=== PATIENT | female | born 1950 | race Two or more races ===

== ENCOUNTER 2019-01-24 16:20 | Inpatient (IN) | payer MEDICARE, MEDICAID ==
[~2019-01-24] VITALS: Ht 165.1 cm; Wt 76.2 kg
[2019-01-24] MEDS ORDERED: IV NS 0.9% 1,000 ML BAG IV ONE (16:30)
--- NOTE | 2019-01-24 17:00 | NUR ---
PAT FROM [facility] "ALTERED MORE THAN USUAL", HX OF HYPONATREMIA. PER EMS, BASELINE IS AOX1. NONVERBAL, HYPERTENSIVE, TACHYCARDIC. RR EVEN AND UNLABORED ON RA. PT HAS GERARDO CATHETER, COLOSTOMY, AND GTUBE. SKIN IS INTACT, WARM TO TOUCH. NO ACUTE DISTRESS NOTED. HOOKED TO MONITOR. READY FOR EVAL.
[2019-01-24 17:01] LABS: BASOPHILS % (AUTO) 0.1 % (0.0-2.0); HEMATOCRIT 37 % (33-45); HEMOGLOBIN 12.2 g/dL (11.5-14.8); LYMPHOCYTES # (AUTO) 0.8 /CMM (0.8-4.8); LYMPHOCYTES % (AUTO) 4.4 % (20.0-44.0); MEAN CORPUSCULAR HGB CONC 33 g/dl (31.0-36.0); MEAN CORPUSCULAR VOLUME 78 fL (82-100); MONOCYTES # (AUTO) 0.8 /CMM (0.1-1.30); MONOCYTES % (AUTO) 4.4 % (2.0-12.0); NEUTROPHILS # (AUTO) 16.1 /CMM (1.8-8.9); NEUTROPHILS % (AUTO) 91.1 % (43.0-81.0); PLATELET COUNT (AUTO) 544 /CMM (150-450); RED BLOOD CELL COUNT(AUTO) 4.76 MIL/uL (4.0-5.2); WHITE BLOOD COUNT (AUTO) 17.7 K/uL (4.3-11.0)
--- NOTE | 2019-01-24 17:07 | NUR ---
URINE COLLECTED AND SENT TO STAT LAB
[2019-01-24 17:22] LABS: ALANINE AMINOTRANSFERASE 16 U/L (12-78); ALBUMIN 2.2 g/dL (3.4-5.0); ALKALINE PHOSPHATASE 210 U/L (46-116); ASPARTATE AMINOTRANSFERASE 21 U/L (15-37); BILIRUBIN,DIRECT 0.1 mg/dL (0.0-0.2); BILIRUBIN,TOTAL 0.5 mg/dL (0.2-1.0); CALCIUM, SERUM 8.6 mg/dL (8.5-10.1); CARBON DIOXIDE 17 mmol/L (21-32); CHLORIDE 81 mmol/L (98-107); CREATININE 0.8 mg/dL (0.6-1.3); GLUCOSE 89 mg/dL (74-106); POTASSIUM 3.5 mmol/L (3.5-5.1); TOTAL PROTEIN, SERUM 6.9 g/dL (6.4-8.2); UREA NITROGEN, BLOOD 6 mg/dL (7-18)
[2019-01-24 17:26] LABS: SODIUM SERUM 88 mmol/L (136-145)
[2019-01-24 17:32] LABS: APPEARANCE,URINE TURBID (CLEAR); BLOOD, URINE 3+ Ery/uL (NEGATIVE); COLOR,URINE YELLOW (YELLOW); PROTEIN,URINE 3+ mg/dl (NEGATIVE); UGLUCOSE NEGATIVE (NEGATIVE)
--- NOTE | 2019-01-24 17:32 | NUR ---
SON AT BEDSIDE
[2019-01-24 17:33] LABS: BILIRUBIN,URINE SMALL (NEGATIVE); KETONES,URINE 3+ (NEGATIVE); LEUKOCYTE ESTERASE ,URINE 2+ (NEGATIVE); NITRITE, URINE NEGATIVE (NEGATIVE); UROBILINOGEN,URINE 0.2 EU/dL (0.2)
[2019-01-24 17:35] LABS: WBC,URINE TOO NUMEROUS TO COUN /HPF (0-3)
[2019-01-24 17:36] LABS: BACTERIA,URINE Moderate /HPF (None Seen); SQUAMOUS EPITHELIAL CELL,UR Few /HPF (None Seen)
--- NOTE | 2019-01-24 17:55 | NUR ---
ADMIT 120 TELE SEPSIS ACCEPTING ADELFO FLORES
[2019-01-24] MEDS ORDERED: VANCOMYCIN 1 GM in IV D5W 250 ML IV ONE (18:00)
[2019-01-24] MEDS ORDERED: PIPERACILLIN /TAZOBACTAM 3.375 G in IV D5W 50 ML IV ONE (18:00)
--- NOTE | 2019-01-24 18:07 | NUR ---
REPORT GIVEN TO CAMERON BARTHOLOMEW FOR 120 T
[2019-01-24] MEDS ORDERED: PIPERACILLIN /TAZOBACTAM 3.375 G VIAL IV ONE (18:09)
[2019-01-24] MEDS ORDERED: VANCOMYCIN 1 GM VIAL ONE (18:09)
--- NOTE | 2019-01-24 18:09 | NUR ---
ADMIT TO 120 TELE DX SEPSIS ADELFO FLORES
--- NOTE | 2019-01-24 19:32 | NUR ---
PT SATTING AT 90%, PLACED ON 3L O2 VIA NC
--- NOTE | 2019-01-24 19:54 | NUR ---
[facility]
[2019-01-24 20:00] VITALS: BP 151/77
--- NOTE | 2019-01-24 20:00 | NUR ---
FIRE EXTINGUISHER TECHNICIAN NOTES, RECEIVED 68 YEAR OLD FEMALE ADMITTED FROM ER TRANSFERRED VIA [facility], UNDER MEDICAL SERVICES OF ADELFO HAWTHORNE NP ADMITTING DX SEPSIS, UTI, HYPONATREMIA, H/O PERITONEAL ACCESS DIVERTICULITIS, CHRONIC PAIN, COPD, GERD, HLD, EMPHYSEMA, PATIENT OPEN EYES SPONTANEOUSLY, BUT DOESN'T FOLLOW ANY COMMANDS, BREATHING EVEN AN UNLABORED, NO SOB/ACUTE DISTRESS NOTED AT THIS TIME, WITH VS 151/77, 113, 98.3, 18, 95% AT 3LPM VIA AK, AFEBRILE AT THIS TIME, WITH ABDOMINAL AND SACRAL WOUND NOTED, BED BATH GIVEN UPON ADMISSION ND CHANGED DRESSING FOR WOUND, WILL F/U WITH ADELFO FOR FURTHER ORDERS, BED S/R O F BED ORDERED, CALL LIGHT W/I REACH, FAMILY AT BEDSIDE, WILL CONTINUE TO MONITOR CLOSELY.
[2019-01-24] MEDS ORDERED: ZOLPIDEM TARTRATE 5 MG TABLET PO PRN (21:00)
[2019-01-24] MEDS ORDERED: ONDANSETRON HCL/PF 4 MG/2 ML VIAL IVP PRN (21:00)
[2019-01-24] MEDS ORDERED: ACETAMINOPHEN 325 MG TABLET PO PRN (21:00)
[2019-01-24] MEDS ORDERED: MAGNESIUM HYDROXIDE 30 ML UDC PO PRN (21:00)
[2019-01-24 21:32] LABS: CREATININE 0.9 mg/dL (0.6-1.3); POTASSIUM 4.1 mmol/L (3.5-5.1)
[2019-01-24] MEDS ORDERED: IV Sodium Chloride 3% 500 ML 500 ML IV ONE (22:30)
[2019-01-24] MEDS ORDERED: DEXTROSE 50%-WATER 50 ML DISP.SYRIN IV PRN (22:30)
[2019-01-25] VITALS (27 sets, daily range): BP systolic 93–150; BP diastolic 40–86
[2019-01-25] MEDS: BLOOD SUGAR DIAGNOSTIC 1 EACH STRIP IN SCH ×5 (00:20→23:53)
[2019-01-25] MEDS ORDERED: IV D5W 1,000 ML IV ONE ×2 (01:00→19:00)
[2019-01-25] MEDS ORDERED: DESMOPRESSIN 4 MCG/ML AMPUL SQ ONE (06:00)
--- NOTE | 2019-01-25 06:06 | NUR ---
RN NOTES, PATIENT IN BED AWAKE AT THIS TIME A/O TO SELF, VERBALLY RESPONSIVE, BREATHING EVEN AND UNLABORED, NO SOB/ACUTE DISTRESS NOTED AT THIS TIME, AT 3LPM VIA NC, AFEBRILE AT THIS TIME, NO SIGNIFICANT CHANGE IN CONDITION DURING THE NIGHT, MIDLINE IN ALIA PATENT AND INTACT, D5W AT 50ML/HR INFUSING WELL AND PATIENT TOLERATED WELL, FREQUENT NEUROLOGICAL ASSESSMENTS ORDERED, COLOSTOMY IN PLACED, WITH SMALL AMOUNT OF BROWN SOFT STOOL, F/F IN PLACED DRAINING YELLOW URINE BY GRAVITY, S/R OF BED ORDERED, SAFETY PROVIDED AT ALL TIMES, CALL LIGHT W/I REACH, WILL CONTINUE TO MONITOR CLOSELY.
[2019-01-25 06:27] LABS: BASOPHILS % (AUTO) 0.2 % (0.0-2.0); EOSINOPHILS % (AUTO) 0.1 % (0.0-6.0); HEMATOCRIT 30 % (33-45); HEMOGLOBIN 10.2 g/dL (11.5-14.8); MEAN CORPUSCULAR HGB CONC 34 g/dl (31.0-36.0); MEAN CORPUSCULAR VOLUME 79 fL (82-100); MONOCYTES # (AUTO) 0.9 /CMM (0.1-1.30); MONOCYTES % (AUTO) 11.3 % (2.0-12.0); NEUTROPHILS # (AUTO) 6.2 /CMM (1.8-8.9); NEUTROPHILS % (AUTO) 76.4 % (43.0-81.0); PLATELET COUNT (AUTO) 422 /CMM (150-450); RED BLOOD CELL COUNT(AUTO) 3.86 MIL/uL (4.0-5.2); WHITE BLOOD COUNT (AUTO) 8.1 K/uL (4.3-11.0)
--- NOTE | 2019-01-25 06:30 | NUR ---
RN NOTES, PATIENT MORE ALERT, AWAKE A/O TO SELF, TIME, PLACE, SITUATION, STATED THAT SHE IS IN HOSPITAL, ABLE TO STATE NAME, DATE OF , WILL CONTINUE TO MONITOR AND ENDORSE FOR CONTINUITY OF CARE TO ONCOMING NURSE.
[2019-01-25] MEDS ORDERED: DESMOPRESSIN 4 MCG/ML AMPUL ONE (06:31)
[2019-01-25 06:47] LABS: CALCIUM, SERUM 7.9 mg/dL (8.5-10.1); CREATININE 0.7 mg/dL (0.6-1.3); MAGNESIUM 1.4 mg/dL (1.8-2.4); PHOSPHORUS 2.4 mg/dL (2.5-4.9); POTASSIUM 3.4 mmol/L (3.5-5.1)
[2019-01-25 07:34] LABS: THYROID STIMULATING HORMONE 1.238 uIU/mL (0.358-3.74)
[2019-01-25] MEDS ORDERED: PANT40TA2 PO (07:56)
[2019-01-25] MEDS ORDERED: BUDE0.5A4 IH (07:59)
[2019-01-25] MEDS ORDERED: ENOX40DI SQ (08:00)
[2019-01-25] MEDS ORDERED: FURO40TA5 PO (08:02)
[2019-01-25] MEDS ORDERED: MUPI22OI7 MC (08:04)
[2019-01-25] MEDS ORDERED: CLOP75TA15 PO (08:06)
[2019-01-25] MEDS ORDERED: MULT1CAP34 PO (08:08)
[2019-01-25] MEDS ORDERED: ASCO500T8 PO (08:13)
[2019-01-25] MEDS ORDERED: ZINC220T PO (08:13)
[2019-01-25] MEDS ORDERED: CRAN425C6 PO (08:17)
[2019-01-25] MEDS ORDERED: FERR325T23 PO (08:17)
[2019-01-25] MEDS ORDERED: FAMO20TA8 PO (08:22)
[2019-01-25] MEDS ORDERED: IPRA0.2S49 NEB (08:50)
[2019-01-25] MEDS ORDERED: METO-356 PO (08:55)
[2019-01-25] MEDS ORDERED: LEVA0.6320 NEB (08:55)
[2019-01-25] MEDS ORDERED: LOSA1TAB36 PO (08:55)
[2019-01-25] MEDS ORDERED: MONT10TA22 PO (08:55)
[2019-01-25] MEDS ORDERED: ROSU10TA2 PO (09:00)
[2019-01-25] MEDS ORDERED: SODI100037 PO (09:00)
[2019-01-25] MEDS ORDERED: SUCR1TAB PO (09:00)
--- NOTE | 2019-01-25 09:00 | NUR ---
RECEIVED PATIENT FROM CAMERON LIND TO TRANSFER TO ICU PER SANDRA EMANUEL ORDER FOR CLOSER MONITORING. VSS. A/OX2 MORE ALERT THAN ON ADMISSION PER REPORTING. TOLERATING LOW FLOW 02 NC WITHOUT SOB, DIFFICULTY BREATHING. PATIENT NOTED WITH COLOSTOMY L QUADRANT AND MARLEEN DRAIN RIGHT QUADRANT C/D/I/P WITH PRURULENT DRAINAGE NOTED. ABD INCISION DEHISCED AND DRAINING PURULENT DRAINAGE WELL. DRESSING C/D/I. SKIN, SAFETY, ASPIRATION PRECAUTIONS IN PLACE AND WILL MONITOR
[2019-01-25] MEDS: Magnesium 1GM/D5W 100ML PREMIX 100 ML IV SCH ×2 (09:17→10:29)
--- NOTE | 2019-01-25 09:33 | NUR ---
PATIENT A/OX2-3 SLIGHTLY FORGETFUL OF ADMISSION TIME AND WHY SHE IS HERE. UNDERSTANDING OF SITUATIONS AND COMPREHENDS. PER PATIENT SHE WISHES TO BE DNR/DNI. NO CHEST COMPRESSIONS AND NO INTUBATION IN THE EVENT HER HEART STOPS OR SHE STOPS BREATHING. SPOKE WITH PATIENT NOTED DANIS MAYS AND SHE STATES PATIENT STILL MAKES HER OWN DECISIONS AND RESPECTFUL OF PATIENT DNR/DNI WISHES.
[2019-01-25] MEDS: POTASSIUM CL. PREMIX PERIPHER. 50 ML IV SCH ×2 (11:38→12:27)
--- NOTE | 2019-01-25 12:09 | NUR ---
PER EVI FLORES PLEASE ORDER DAKINS 09/30 SOAKED GAUZE PACKED IN WOUND AND COVER WITH DRY DRESSING
[2019-01-25 12:46] LABS: CALCIUM, SERUM 7.7 mg/dL (8.5-10.1); CREATININE 0.7 mg/dL (0.6-1.3); POTASSIUM 3.4 mmol/L (3.5-5.1)
[2019-01-25] MEDS: DESMOPRESSIN 4 MCG/ML AMPUL SQ SCH ×3 (12:48→23:56)
[2019-01-25] MEDS: POTASSIUM PHOSPHATE MM 5 MMOL in IV D5W 100 ML IV SCH ×2 (13:38→15:49)
--- NOTE | 2019-01-25 13:42 | NUR ---
SANDRA HAWTHORNE AT BEDSIDE. UPDATED ON PATIENT CONDITION/LABS/VS. PER ENVIRONMENTAL LEAD DR HART WILL COVER ELECTROLYTE IMBALANCES. OKAY WITH SODIUM OF 115. NO NEW ORDERS. PENDING UPDATED BMP AT 1800
[2019-01-25] MEDS: ENSURE ENLIVE CHOC 237 ML CAN PO SCH ×2 (14:30→18:10)
[2019-01-25] MEDS: Z GUARD REMEDY 2 OZ OINT TP PRN (18:03)
--- NOTE | 2019-01-25 18:56 | NUR ---
SANDRA CAMPOS AT BEDSIDE. UPDATED ON PATIENT CONDITION, LABS, VS. VISUALIZED WOUND. PER COMMERCIAL SERVICE TECHNICIAN OK TO REPLACE GERARDO CATH.
--- NOTE | 2019-01-25 18:58 | NUR ---
ALL DUE MEDS GIVEN AND ALL NEEDS MET. PATIENT VSS. ROOM AIR STABLE. PER SENIOR DATABASE ADMINISTRATOR ADELFO NOTIFY HER OF NEWEST UPCOMING BMP SODIUM LEVEL AND UNTIL THEN CONTINUE THE D5W AT 50ML/HOUR. SKIN, SAFETY, ASPIRATION PRECAUTIONS MONITORED THROUGHOUT THE DAY.
--- NOTE | 2019-01-25 19:20 | NUR ---
CARE ENDORSED TO CAMERON MARIE FOR FLORENTINO. PATIENT STABLE. NO S/S DISTRESS.
--- NOTE | 2019-01-25 19:20 | NUR ---
Lab resulted BMP with sodium 115.SANDRA Peter notified.Awaiting for orders.
--- NOTE | 2019-01-25 19:30 | NUR ---
Received patient awake oriented x 1 otherwise disoriented and forgetful.Oriented to pace and time. Respiration even and unlabored.On RA SPO2 87% non sustaining and goes up 98%-100%.SR.VS stable. Hemodynamically stable.Abdomen soft with colostomy and MARLEEN.Abdominal dressing C/D/I.FC to gravity. IVF D5W infusing at 50 ml/hr via ALIA MID LINE site intact.Denies pain.Care explained verbalized understanding.Safety precaution observed.Bed in locked and low position.Side rails up and call light within easy reach.Bed alarm on.turned and repositioned.
[2019-01-25 19:36] LABS: CALCIUM, SERUM 7.7 mg/dL (8.5-10.1); CREATININE 0.7 mg/dL (0.6-1.3); POTASSIUM 3.7 mmol/L (3.5-5.1)
--- NOTE | 2019-01-25 20:00 | NUR ---
Mcfarlane catheter removed with tip intact.New Mcfarlane Catheter Fr# 16 inserted under aseptic technique by CAMERON Morocho with cloudy yellow urine small amount.Patient tolerated procedure well.
[2019-01-25] MEDS ORDERED: IV D5/0.45 NACL 1,000 ML IV SCH (21:00)
[2019-01-25] MEDS: PIPERACILLIN /TAZOBACTAM 3.375 G in IV D5W 50 ML IV SCH (21:00)
[2019-01-25] MEDS ORDERED: IV D5W 1,000 ML IV PRN (22:30)
[2019-01-26] VITALS (20 sets, daily range): BP systolic 114–163; BP diastolic 48–92
--- NOTE | 2019-01-26 | NUR ---
Patient resting.VS stable.Turned and repositioned.Denies pain.
[2019-01-26 01:03] LABS: CALCIUM, SERUM 7.7 mg/dL (8.5-10.1); CREATININE 0.7 mg/dL (0.6-1.3); POTASSIUM 3.5 mmol/L (3.5-5.1)
[2019-01-26] MEDS: PIPERACILLIN /TAZOBACTAM 3.375 G in IV D5W 50 ML IV SCH ×3 (02:30→21:17)
[2019-01-26 05:11] LABS: BASOPHILS % (AUTO) 0.3 % (0.0-2.0); EOSINOPHILS % (AUTO) 0.4 % (0.0-6.0); HEMATOCRIT 27 % (33-45); HEMOGLOBIN 9.1 g/dL (11.5-14.8); LYMPHOCYTES # (AUTO) 0.9 /CMM (0.8-4.8); LYMPHOCYTES % (AUTO) 9.3 % (20.0-44.0); MEAN CORPUSCULAR HGB CONC 34 g/dl (31.0-36.0); MEAN CORPUSCULAR VOLUME 77 fL (82-100); MONOCYTES # (AUTO) 0.9 /CMM (0.1-1.30); MONOCYTES % (AUTO) 9.8 % (2.0-12.0); NEUTROPHILS # (AUTO) 7.4 /CMM (1.8-8.9); NEUTROPHILS % (AUTO) 80.2 % (43.0-81.0); PLATELET COUNT (AUTO) 335 /CMM (150-450); RED BLOOD CELL COUNT(AUTO) 3.45 MIL/uL (4.0-5.2); WHITE BLOOD COUNT (AUTO) 9.2 K/uL (4.3-11.0)
[2019-01-26 05:24] LABS: CALCIUM, SERUM 7.6 mg/dL (8.5-10.1); CREATININE 0.8 mg/dL (0.6-1.3); MAGNESIUM 1.6 mg/dL (1.8-2.4); PHOSPHORUS 2.2 mg/dL (2.5-4.9); POTASSIUM 3.4 mmol/L (3.5-5.1)
[2019-01-26] MEDS: BLOOD SUGAR DIAGNOSTIC 1 EACH STRIP IN SCH ×4 (05:57→23:00)
[2019-01-26] MEDS: DESMOPRESSIN 4 MCG/ML AMPUL SQ SCH (05:58)
--- NOTE | 2019-01-26 06:40 | NUR ---
WOUND CARE CONSULT WOUND CARE RECEIVED CONSULT FOR ABD AND SACRUM. WOUND CARE WILL DEFER CONSULT AND TREATMENT PLANS TO PLASTIC SURGICAL TEAM WHO ARE CURRENTLY FOLLOWING THIS PATIENT. PATIENT WITH KWAME AT 12, ALL PRESSURE ULCER PREVENTION MEASURES ARE NOTED TO BE IN PLACE. WILL SEE PRN.
--- NOTE | 2019-01-26 06:50 | NUR ---
Patient resting vs remains stable.Am care done.Remains confused on and off talking to imaginary friend. Sodium level remains low 115,116,114.IVF D5W infusing.Safety precaution maintained.Will endorse to day shift FLORENTINO.
--- NOTE | 2019-01-26 08:00 | NUR ---
RN NOTE: PATIENT RECEIVED ALERT AWAKE ORIENTED X 1 WITH EPISODES OF CONFUSION, FORGETFUL. ON ROOM AIR, NO BREATHING DISTRESS NOTED. DENIES PAIN & DISCOMFORT. IV FLUIDS RUNNING ORDERED BY MD. CONTINUE TO MONITOR LAB VALUES. ABDOMINAL SURGICAL SITE DRESSING INTACT. MARLEEN DRAIN INTACT WITH MINIMAL OUTPUT. COLOSTOMY BAG INTACT, NO LEAKAGE NOTED. GERARDO CATH INTACT, DRAINING WITH GRAVITY. SAFETY MEASURES OBSERVED. ENCOURAGE PATIENT TO USE CALL LIGHT FOR ASSISTANCE. CONTINUE TO MONITOR.
[2019-01-26] MEDS: ENSURE ENLIVE CHOC 237 ML CAN PO SCH ×2 (08:27→17:47)
[2019-01-26] MEDS: Z GUARD REMEDY 2 OZ OINT TP PRN (08:28)
[2019-01-26] MEDS: DAKINS QUARTER STRENGTH (0.125%) 480 ML BOTTLE TOP SCH (08:29)
[2019-01-26] MEDS: Magnesium 1GM/D5W 100ML PREMIX 100 ML IV SCH ×2 (10:05→11:10)
[2019-01-26] MEDS: IV NS 0.9% 1,000 ML IV PRN (10:21)
--- NOTE | 2019-01-26 12:00 | NUR ---
RN NOTE: PATIENT REMAINS ALERT AWAKE ORIENTED X 1. NO SIGNIFICANT CHANGES NOTED. CONTINUE WITH PLAN OF CARE. ABDOMINAL DRESSING CHANGES ORDERED. ENCOURAGE PATIENT FOR ORAL INTAKE.
[2019-01-26] MEDS: POTASSIUM PHOSPHATE MM 5 MMOL in IV D5W 100 ML IV SCH ×2 (12:20→14:38)
[2019-01-26 14:52] LABS: CALCIUM, SERUM 7.7 mg/dL (8.5-10.1); CREATININE 0.7 mg/dL (0.6-1.3); POTASSIUM 3.5 mmol/L (3.5-5.1)
[2019-01-26] MEDS ORDERED: IV Sodium Chloride 3% 500 ML 500 ML IV ONE (16:00)
--- NOTE | 2019-01-26 16:45 | NUR ---
RN RECEIVING NOTES RECEIVED REPORT FROM ICU NURSE AT 1635. PT WAS BROUGHT TO UNIT IN BED ON TELE MONITOR. PT DENIES ANY PAIN OR SOB AT PRESENT MOMENT. PT VITALS TAKEN. WILL CONTINUE TO MONITOR PT.
--- NOTE | 2019-01-26 16:53 | NUR ---
RN NOTES: AT 1510: RECEIVED CRITICAL LAB VALUE SODIUM IS 113, DR. HART MADE AWARE, RECEIVED NEW ORDERS TO START NS 3% AT 30ML/HR FOR 8 HRS X 1. ORDERS NOTED & CARRIED OUT. BMP CHECK AT 1800 TODAY. WAITING FROM PHARMACY TO DELIVER NS 3%. AT 1640: PATIENT TRANSFERRED TO TELE FLOOR WITH ACLS PROTOCOL ORDERED BY MD. REPORT GIVEN TO ASSIGN RN.
[2019-01-26 18:24] LABS: CALCIUM, SERUM 7.8 mg/dL (8.5-10.1); CREATININE 0.7 mg/dL (0.6-1.3)
--- NOTE | 2019-01-26 18:32 | NUR ---
LAB CALLED TO REPORT CRITICAL LAB VALUE OF SODIUM LEVEL 114. ALREADY AWARE OF LOW LEVELS. PRIOR LEVEL WAS 113.
--- NOTE | 2019-01-26 18:33 | NUR ---
3% SODIUM STARTED LATE DUE TO UNAVAILABILITY FROM RX.
--- NOTE | 2019-01-26 18:49 | NUR ---
DELIVERY CREW WORKER CLOSING NOTES PT IS LAYING IN BED. PT IS CONFUSED AND IS A&O X1. NEUROLOGICAL CHECKS Q2HRS. PT HAS A ELZBIETA MIDLINE. PT STATES THAT SHE IS NOT HAVING ANY CHEST PAIN OR SOB AT PRESENT MOMENT. BED IS LOCKED AND IN LOWEST POSITION WITH GERARDO DRAINING TO GRAVITY. WILL ENDORSE CONTINUITY OF CARE TO TEMPLATE CUTTER NURSE.
[2019-01-26] MEDS: HYDROCODONE/APAP 5/325MG 1 EACH TABLET PO PRN (21:23)
[2019-01-27] VITALS (7 sets, daily range): BP systolic 130–154; BP diastolic 72–82
[2019-01-27] MEDS: PIPERACILLIN /TAZOBACTAM 3.375 G in IV D5W 50 ML IV SCH ×4 (02:51→21:29)
[2019-01-27] MEDS: HYDROCODONE/APAP 5/325MG 1 EACH TABLET PO PRN ×3 (02:52→16:34)
[2019-01-27] MEDS: IV NS 0.9% 1,000 ML IV PRN ×2 (06:00→16:50)
[2019-01-27] MEDS: BLOOD SUGAR DIAGNOSTIC 1 EACH STRIP IN SCH ×3 (06:00→17:19)
[2019-01-27 07:27] LABS: ALBUMIN 1.9 g/dL (3.4-5.0); BILIRUBIN,TOTAL 0.4 mg/dL (0.2-1.0); CREATININE 0.7 mg/dL (0.6-1.3); MAGNESIUM 1.9 mg/dL (1.8-2.4); POTASSIUM 3.6 mmol/L (3.5-5.1); TOTAL PROTEIN, SERUM 5.7 g/dL (6.4-8.2)
--- NOTE | 2019-01-27 07:28 | NUR ---
Attempt to give patient orange juice, apple juice, spoon full of sugar. Patient refused. Will give amp of d50. Harley Thacker RN
[2019-01-27 07:36] LABS: BASOPHILS % (AUTO) 0.3 % (0.0-2.0); EOSINOPHILS % (AUTO) 1.2 % (0.0-6.0); HEMATOCRIT 29 % (33-45); HEMOGLOBIN 9.8 g/dL (11.5-14.8); LYMPHOCYTES # (AUTO) 0.9 /CMM (0.8-4.8); LYMPHOCYTES % (AUTO) 15.5 % (20.0-44.0); MEAN CORPUSCULAR HGB CONC 34 g/dl (31.0-36.0); MEAN CORPUSCULAR VOLUME 78 fL (82-100); MONOCYTES # (AUTO) 0.6 /CMM (0.1-1.30); MONOCYTES % (AUTO) 10.6 % (2.0-12.0); NEUTROPHILS % (AUTO) 72.4 % (43.0-81.0); PLATELET COUNT (AUTO) 308 /CMM (150-450); RED BLOOD CELL COUNT(AUTO) 3.71 MIL/uL (4.0-5.2); WHITE BLOOD COUNT (AUTO) 5.6 K/uL (4.3-11.0)
[2019-01-27] MEDS: ENSURE ENLIVE CHOC 237 ML CAN PO SCH ×2 (08:05→17:00)
[2019-01-27] MEDS: DAKINS QUARTER STRENGTH (0.125%) 480 ML BOTTLE TOP SCH (09:20)
--- NOTE | 2019-01-27 10:16 | NUR ---
LEONIE Castellon will remove food processing plant manager as she is changing the patient at this time. Harley Thacker RN
[2019-01-27] MEDS ORDERED: IV Sodium Chloride 3% 500 ML 500 ML IV SCH (14:30)
[2019-01-27 14:54] LABS: CALCIUM, SERUM 7.6 mg/dL (8.5-10.1); CREATININE 0.6 mg/dL (0.6-1.3); POTASSIUM 3.4 mmol/L (3.5-5.1)
--- NOTE | 2019-01-27 16:47 | NUR ---
Wound care with VEHICLE WASHER Erasmo. Patient wound covered in dakins per orders packed with kerlix. Abdominal pad and tape placed on top of this. Harley Thacker RN
--- NOTE | 2019-01-27 16:50 | NUR ---
Three percent NS bag for IV fluids at this time in lieu of 0.9% NS. Harley Thacker RN
[2019-01-27] MEDS ORDERED: IV NS 0.9% 250 ML IV ONE (17:45)
[2019-01-27] MEDS ORDERED: IOHEXOL-300 100 ML VIAL IV ONE (17:45)
--- NOTE | 2019-01-27 17:51 | NUR ---
Patient signed consent. She is NPO pending her procedure. CT / Radiology department notified midline IV present and patient is ready for pickup. Harley Thacker RN
--- NOTE | 2019-01-27 19:05 | NUR ---
Patient return from CT of abdomen and pelvis. Offered PO intake. Refused at this time. Midline site reconnection for IV 3% normal saline administration. Harley Thacker RN
--- NOTE | 2019-01-27 19:45 | NUR ---
RN NOTES RECEIVED PATIENT AWAKE IN BED, S/P CT OF THE ABDOMEN AND PELVIS, RESTING COMFORTABLY, NO SIGNS OF ACUTE RESPIRATORY DISTRESS NOTED, SAFETY MEASURES IN PLACED, BED IN LOW LOCKED POSITION, CALL LIGHT WITHIN EASY REACH, ASPIRATION PRECAUTION OBSERVED, REPOSITIONED FOR COMFORT, KEPT CLEAN DRY AND COMFORTABLE. WILL MONITOR ACCORDINGLY.
[2019-01-28] MEDS: BLOOD SUGAR DIAGNOSTIC 1 EACH STRIP IN SCH ×4 (00:07→18:03)
[2019-01-28 00:23] VITALS: BP 153/82
[2019-01-28] MEDS: PIPERACILLIN /TAZOBACTAM 3.375 G in IV D5W 50 ML IV SCH ×4 (02:54→21:19)
[2019-01-28 04:05] VITALS: BP 141/74
[2019-01-28] MEDS: IV NS 0.9% 1,000 ML IV PRN ×2 (05:45→18:04)
--- NOTE | 2019-01-28 06:28 | NUR ---
RN NOTES ALL NEEDS ATTENDED AND MET, ABLE TO REST AND SLEEP AT INTERVALS, KEPT RESTED, NO SIGNS OF ACUTE RESPIRATORY DISTRESS NOTED, KEPT ORTIZ AND DRY, SAFETY MEASURES IN PLACED, ASPIRATION PRECAUTION OBSERVED, MARLEEN DRAINAGE NOTED WITH PURULENT NON FOUL SMELLING, INTACT AND SECURED, ABDOMINAL DRESSING DRY CLEAN AND INTACT, WILL ENDORSE TO AM NURSE FOR CONTINUITY OF CARE.
[2019-01-28 07:22] LABS: ALBUMIN 1.7 g/dL (3.4-5.0); BILIRUBIN,TOTAL 0.3 mg/dL (0.2-1.0); CALCIUM, SERUM 8.1 mg/dL (8.5-10.1); CREATININE 0.6 mg/dL (0.6-1.3); MAGNESIUM 1.8 mg/dL (1.8-2.4); PHOSPHORUS 3.4 mg/dL (2.5-4.9); POTASSIUM 3.4 mmol/L (3.5-5.1); TOTAL PROTEIN, SERUM 5.3 g/dL (6.4-8.2)
[2019-01-28 07:31] LABS: THYROID STIMULATING HORMONE 2.046 uIU/mL (0.358-3.74); URIC ACID 1.7 mg/dL (2.6-7.2)
[2019-01-28 07:48] LABS: BASOPHILS % (AUTO) 0.3 % (0.0-2.0); EOSINOPHILS % (AUTO) 0.6 % (0.0-6.0); HEMATOCRIT 31 % (33-45); HEMOGLOBIN 10.2 g/dL (11.5-14.8); LYMPHOCYTES # (AUTO) 0.6 /CMM (0.8-4.8); LYMPHOCYTES % (AUTO) 11.7 % (20.0-44.0); MEAN CORPUSCULAR HGB CONC 33 g/dl (31.0-36.0); MEAN CORPUSCULAR VOLUME 79 fL (82-100); MONOCYTES # (AUTO) 0.4 /CMM (0.1-1.30); NEUTROPHILS # (AUTO) 4.3 /CMM (1.8-8.9); NEUTROPHILS % (AUTO) 79.4 % (43.0-81.0); PLATELET COUNT (AUTO) 301 /CMM (150-450); RED BLOOD CELL COUNT(AUTO) 3.94 MIL/uL (4.0-5.2); WHITE BLOOD COUNT (AUTO) 5.3 K/uL (4.3-11.0)
[2019-01-28 08:00] VITALS: BP 160/78
[2019-01-28] MEDS: HYDROCODONE/APAP 5/325MG 1 EACH TABLET PO PRN ×2 (09:15→21:19)
[2019-01-28] MEDS: DAKINS QUARTER STRENGTH (0.125%) 480 ML BOTTLE TOP SCH (09:18)
[2019-01-28] MEDS: ENSURE ENLIVE CHOC 237 ML CAN PO SCH ×2 (09:18→17:54)
[2019-01-28] MEDS ORDERED: POTASSIUM CHLORIDE 20 MEQ TAB.PRT.SR PO SCH (10:00)
--- NOTE | 2019-01-28 13:27 | NUR ---
Moist non-productive cough audible without stethoscope. Patient swelling on the right ankle more than left ankle 3+ and 2+, respectively. Will encourage lower extremity positioning for return of fluid to the heart, coughing, and deep breathing. Harley Lozano RN
[2019-01-28 14:47] LABS: CALCIUM, SERUM 8.2 mg/dL (8.5-10.1); CREATININE 0.7 mg/dL (0.6-1.3); POTASSIUM 3.4 mmol/L (3.5-5.1)
[2019-01-28 16:00] VITALS: BP 126/66
--- NOTE | 2019-01-28 18:26 | NUR ---
MARLEEN drain 15ml out. Sent to micro for culture. Wound culture not advised per ID at this time. Harley Lozano RN
--- NOTE | 2019-01-28 19:14 | NUR ---
Handoff to CAMERON Escudero. Harley Thacker RN
--- NOTE | 2019-01-28 19:15 | NUR ---
RN MS OPENING NOTES RECEIVED PATIENT IN BED AWAKE ALERT AND ORIENTED X2, NOTED WITH FORGETFULNESS BUT REDIRECTABLE. ABLE TO MAKE SIMPLE NEEDS KNOWN, RESPIRATIONS EVEN AND UNLABORED WITH EQUAL RISE AND FALL OF CHEST, ON 2 L VIA NC , NO SOB, NO DISTRESS PRESENT, COLOSTOMY BAG CLEAN, DRY AND INTACT, ABD. DRESSING CLEAN, DRY AND INTACT, OFFERED TO CHANGE DRESSING PATIENT STATES "LATER" WILL TRY AGAIN. GERARDO CATHETER INTACT AND DRAINING URINE YELLOW, MARLEEN DRAIN INTACT WITH PROPER SUCTION, WILL MONITOR FOR DRAINAGE, PATIENT REPOSITIONED, HEEL OFFLOADED, ORIENTED TO STAFF AND CALL LIGHT AND KEPT WITHIN REACH, SAFETY PRECAUTIONS IN PLACE,LOW BED AND LOCKED, BED ALARM IN PLACE, RIGHT UPPER ARM PICC LINE INTACT AND PATENT, IVF RUNNING ORDERED, ALL NEEDS ATTENDED AT THIS TIME, PATIENT REMAINS COMFORTABLE WILL CONTINUE TO MONITOR AND ADDRESS NEEDS. Addendum: 01/28/19 at 2200 by AWILDA LIGHT RN CLARIFICATION PICC LINE LEFT UPPER ARM.
[2019-01-28 20:00] VITALS: BP 146/65
--- NOTE | 2019-01-28 21:19 | NUR ---
RN MS NOTES PATIENT COMPLAINT OF PAIN TO ABDOMEN SITE, REQUESTING FOR NORCO 5/10 PAIN VS WNL 146/65,18,94%,86 NORCO PRN GIVEN ORDERED WILL CONTINUE TO MONITOR, OFFERED PATIENT TO HAVE ABD. DRESSING CHANGE 30-45 MINS AFTER NORCO ADMINISTRATION PATIENT REFUSED STATES "NO, LATER".
[2019-01-29] MEDS: INSULIN REGULAR, HUMAN 100 UNIT/ML 3 ML VIAL SQ PRN ×2 (00:27→06:00)
[2019-01-29] MEDS: BLOOD SUGAR DIAGNOSTIC 1 EACH STRIP IN SCH ×4 (00:27→18:11)
[2019-01-29] MEDS: PIPERACILLIN /TAZOBACTAM 3.375 G in IV D5W 50 ML IV SCH ×4 (02:51→20:33)
[2019-01-29] MEDS: IV NS 0.9% 1,000 ML IV PRN ×2 (02:51→20:33)
[2019-01-29 04:00] VITALS: BP 160/78
[2019-01-29] MEDS: HYDROCODONE/APAP 5/325MG 1 EACH TABLET PO PRN (04:28)
--- NOTE | 2019-01-29 04:28 | NUR ---
RN MS NOTES PATIENT COMPLAINT OF PAIN TO ABDOMEN AREA 07/06 STATES "ACHING" NOTED WITH MOANS, OFFERED NORCO PRN PATIENT AGREED, VS WNL 160/78,97,17,99%. NORCO PRN GIVEN ORDERED WILL CONTINUE TO MONITOR FOR EFFECTIVENESS. OFFERED WOUND CARE 30-45 MINS AFTER NORCO ADMINISTRATION PATIENT AGREED.
--- NOTE | 2019-01-29 07:03 | NUR ---
RN MS CLOSING NOTES PATIENT IN BED AWAKE ALERT AND ORIENTED X2, NOTED WITH FORGETFULNESS BUT REDIRECTABLE. ABLE TO MAKE SIMPLE NEEDS KNOWN, RESPIRATIONS EVEN AND UNLABORED WITH EQUAL RISE AND FALL OF CHEST, ON 2 L VIA NC , NO SOB, NO DISTRESS PRESENT, COLOSTOMY BAG CLEAN, DRY AND INTACT, ABD. DRESSING CLEAN, DRY AND INTACT, CHANGE DRESSING PATIENT TOLERATED WELL. GERARDO CATHETER INTACT AND DRAINING URINE YELLOW, MARLEEN DRAIN INTACT WITH PROPER SUCTION, PATIENT REPOSITIONED, HEELS OFFLOADED,CALL LIGHT KEPT WITHIN REACH, SAFETY PRECAUTIONS IN PLACE,LOW BED AND LOCKED, BED ALARM IN PLACE, RIGHT UPPER ARM PICC LINE INTACT AND PATENT, IVF RUNNING ORDERED, ALL NEEDS ATTENDED AT THIS TIME, PATIENT REMAINS COMFORTABLE WILL CONTINUE TO MONITOR AND ADDRESS NEEDS AND ENDORSE TO NEXT SHIFT, WOUND CARE PROVIDED ORDERED.
[2019-01-29 07:10] LABS: BASOPHILS % (AUTO) 0.4 % (0.0-2.0); EOSINOPHILS % (AUTO) 0.7 % (0.0-6.0); HEMATOCRIT 30 % (33-45); LYMPHOCYTES # (AUTO) 0.8 /CMM (0.8-4.8); LYMPHOCYTES % (AUTO) 14.5 % (20.0-44.0); MEAN CORPUSCULAR HGB CONC 33 g/dl (31.0-36.0); MEAN CORPUSCULAR VOLUME 78 fL (82-100); MONOCYTES # (AUTO) 0.5 /CMM (0.1-1.30); NEUTROPHILS # (AUTO) 4.5 /CMM (1.8-8.9); NEUTROPHILS % (AUTO) 76.4 % (43.0-81.0); PLATELET COUNT (AUTO) 289 /CMM (150-450); RED BLOOD CELL COUNT(AUTO) 3.89 MIL/uL (4.0-5.2); WHITE BLOOD COUNT (AUTO) 5.8 K/uL (4.3-11.0)
[2019-01-29 07:28] LABS: ALBUMIN 1.7 g/dL (3.4-5.0); BILIRUBIN,TOTAL 0.3 mg/dL (0.2-1.0); CALCIUM, SERUM 8.2 mg/dL (8.5-10.1); CREATININE 0.6 mg/dL (0.6-1.3); MAGNESIUM 1.7 mg/dL (1.8-2.4); PHOSPHORUS 3.2 mg/dL (2.5-4.9); POTASSIUM 3.4 mmol/L (3.5-5.1); TOTAL PROTEIN, SERUM 5.2 g/dL (6.4-8.2)
[2019-01-29 08:00] VITALS: BP 120/82
[2019-01-29] MEDS: ENSURE ENLIVE CHOC 237 ML CAN PO SCH ×2 (08:41→16:48)
[2019-01-29] MEDS: DAKINS QUARTER STRENGTH (0.125%) 480 ML BOTTLE TOP SCH (08:54)
[2019-01-29] MEDS ORDERED: POTASSIUM CHLORIDE 20 MEQ TAB.PRT.SR PO SCH (10:30)
[2019-01-29] MEDS: Magnesium 1GM/D5W 100ML PREMIX 100 ML IV SCH ×2 (11:22→13:05)
[2019-01-29 12:00] VITALS: BP 120/86
[2019-01-29 16:00] VITALS: BP_SYST 128; BP_SYST 138; BP_DIAS 76; BP_DIAS 80
--- NOTE | 2019-01-29 19:25 | NUR ---
MS RN NOTE PATIENT RECEIVED IN BED A/O X 2. PATIENT ABLE TO MAKE NEEDS KNOWN. NO CURRENT NEEDS VOICED AT THIS TIME. PATIENT HAS NO S.S OF ACUTE DISTRESS. PATIENT BREATHING EVEN UNLABORED. PATIENT DENIES CHEST PAIN AT THIS TIME. HAS MARLEEN DRAIN INTACT WITH SEROUS MCCAIN/YELLOWISH DRAINAGE. MD ORDER GIVEN TO MILK THE DRAIN TUBING. PATIENT REPOSITIONED FOR COMFORT SAFETY PRECAUTIONS IN PLACE. RN WILL CONTINUE TO MONITOR. CALL LIGHT AT BEDSIDE.
[2019-01-29 20:00] VITALS: BP 161/85
[2019-01-29 20:11] VITALS: BP 161/85
[2019-01-30] MEDS: BLOOD SUGAR DIAGNOSTIC 1 EACH STRIP IN SCH ×3 (00:50→13:49)
[2019-01-30] MEDS: PIPERACILLIN /TAZOBACTAM 3.375 G in IV D5W 50 ML IV SCH ×2 (02:59→09:50)
[2019-01-30 04:00] VITALS: BP 147/78
[2019-01-30 04:43] VITALS: BP 147/78
[2019-01-30 06:54] LABS: CALCIUM, SERUM 8.3 mg/dL (8.5-10.1); CREATININE 0.6 mg/dL (0.6-1.3); MAGNESIUM 1.7 mg/dL (1.8-2.4); POTASSIUM 3.4 mmol/L (3.5-5.1)
--- NOTE | 2019-01-30 07:30 | NUR ---
RN NOTES RECEIVED PATIENT IN BED AWAKE, ALERT AND ORIENTED X2, NOTED WITH FORGETFULNESS. ABLE TO MAKE NEEDS KNOWN, RESPIRATIONS EVEN AND UNLABORED. ON 2L VIA NC, NO SOB NOTED. NO COMPLAINTS OF ANY KIND OF PAIN AT THIS TIME. APPEARS TO BE COMFORTABLE I BED. IV ACCCESS ON THE ALIA PICC LINE IN PLACE AND INTACT, WITH ONGOING IVF OF NS AT 100CC/HR. COLOSTOMY BAG IN PLACE AND INTACT. MARLEEN DRAIN IN PLACE DRAINING TO SEROUS PURULENT DRAINAGE SCANTY AT THIS TIME, WILL MONITOR DRAINAGE. GERARDO CATHETER INTACT AND DRAINING VIA GRAVITY YO YELLOW URINE. PATIENT ENCOURAGE TO CALL FOR HELP/ ASSISTANCE. CALL LIGHT PLACED WITHIN REACH, SAFETY PRECAUTIONS OBSERVED AND KEPT IN PLACE, BED IN LOW AND LOCKED POSITIONED, WILL CONTINUE TO MONITOR PATIENT AND ADDRESS NEEDS
[2019-01-30] MEDS ORDERED: SULF1TAB48 PO (09:08)
[2019-01-30] MEDS: ENSURE ENLIVE CHOC 237 ML CAN PO SCH (09:51)
[2019-01-30] MEDS: DAKINS QUARTER STRENGTH (0.125%) 480 ML BOTTLE TOP SCH (09:51)
[2019-01-30] MEDS: Magnesium 1GM/D5W 100ML PREMIX 100 ML IV SCH ×2 (10:43→12:00)
[2019-01-30] MEDS ORDERED: POTASSIUM CHLORIDE 20 MEQ TAB.PRT.SR PO SCH (11:00)
--- NOTE | 2019-01-30 15:20 | NUR ---
RN NOTES REPORT GIVEN TO Roberto FOWLER FOR CONTINUITY OF CARE
--- NOTE | 2019-01-30 15:25 | NUR ---
RN NOTES PATIENT DISCHARGE. ALL DISCHARGE AND MEDICATION INSTRUCTION GIVEN TO PATIENT AND WAS GIVE TO CAMERON FOWLER TO REPORT. ALL CONCERN AND QUESTIONS ADDRESSED. ALL BELONGINGS ACCOUNTED FOR, GIVEN BACK TO PATIENT. ALL PERTINENT DISCHARGE ASSESSMENT DONE. ID BAND REMOVE, PICC LINE AND GERARDO CATHETER KEPT IN PLACE PER REQUEST OF CAMERON FOWLER ([facility]). PATIENT WHEELED OUT OF THE UNIT ACCOMPANIED BY 2 EMT AND RT.
== END 2019-01-30 15:25 | DRG 871 ==
LOC: ER 16:22 → TELE1 18:37 → MEDSG1 20:56 → ICU 01-25 08:46 → TELE1 01-26 16:13 → MEDSG1 01-27 09:59
PROVIDERS: ADMIT Nurse Practitioner Acute Care; ATTEND Nurse Practitioner Acute Care
PROC: 05H633Z Insertion of Infusion Device into Left Subclavian Vein, Percutaneous Approach (ICD-10-PCS; principal; 2019-01-24)
PROC: B547ZZA Ultrasonography of Left Subclavian Vein, Guidance (ICD-10-PCS; 2019-01-24)
DX: A41.9 Sepsis, unspecified organism (principal); R53.2 Functional quadriplegia; G92 Toxic encephalopathy; N39.0 Urinary tract infection, site not specified; D68.59 Other primary thrombophilia; I50.32 Chronic diastolic (congestive) heart failure; T81.30XA Disruption of wound, unspecified, initial encounter; E22.2 Syndrome of inappropriate secretion of antidiuretic hormone; E87.2 Acidosis; I31.3 Pericardial effusion (noninflammatory); N13.6 Pyonephrosis; R62.7 Adult failure to thrive; Z66 Do not resuscitate; Z51.5 Encounter for palliative care; Z87.891 Personal history of nicotine dependence; Z87.440 Personal history of urinary (tract) infections; Z93.3 Colostomy status; Z90.49 Acquired absence of other specified parts of digestive tract; D63.8 Anemia in other chronic diseases classified elsewhere; E78.5 Hyperlipidemia, unspecified; Z88.5 Allergy status to narcotic agent; Z88.2 Allergy status to sulfonamides; Z91.040 Latex allergy status; R32 Unspecified urinary incontinence; K21.9 Gastro-esophageal reflux disease without esophagitis; I73.9 Peripheral vascular disease, unspecified; R13.10 Dysphagia, unspecified; I11.0 Hypertensive heart disease with heart failure; J44.9 Chronic obstructive pulmonary disease, unspecified; B96.89 Other specified bacterial agents as the cause of diseases classified elsewhere; Y83.9 Surgical procedure, unspecified as the cause of abnormal reaction of the patient, or of later complication, without mention of misadventure at the time of the procedure; Y92.129 Unspecified place in nursing home as the place of occurrence of the external cause; L98.9 Disorder of the skin and subcutaneous tissue, unspecified; E16.2 Hypoglycemia, unspecified; E86.1 Hypovolemia; E83.42 Hypomagnesemia; E83.39 Other disorders of phosphorus metabolism; E83.51 Hypocalcemia; E87.6 Hypokalemia; Z98.890 Other specified postprocedural states; N73.9 Female pelvic inflammatory disease, unspecified; D50.9 Iron deficiency anemia, unspecified; L22 Diaper dermatitis; K58.9 Irritable bowel syndrome, unspecified; H91.90 Unspecified hearing loss, unspecified ear; F42.9 Obsessive-compulsive disorder, unspecified
CPT/HCPCS: 36415; 70450-TC; 71045-TC; 80048-TC; 80053-TC; 80061-TC; 80076-TC; 81000-TC; 82533; 82728-TC; 82962-TC; 83540-TC; 83605-TC; 83735-TC; 84100-TC; 84443-TC; 84484-TC; 84550-TC; 85025-TC; 85730-TC; 87040-TC; 87070-TC; 87081-TC; 87086-TC; 87186-TC; 92611-TC; 94799-TC; A6253; A6402; A6403; G0378; J1815; J2405; J2543; J2597; J3370; J3475; J3480; J3490; J7030; J7050; J7060; J7070; Q9967